=== PATIENT | male | born 2000 | race Caucasian/White ===

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

== ENCOUNTER 2021-01-03 18:55 | Emergency (ER) | payer MEDICAID ==
[~2021-01-03] VITALS: Ht 160 cm; Wt 59.1 kg
[2021-01-03 18:55] VITALS: TEMP 99.2
[2021-01-03 22:32] VITALS: BP 116/84; PULSE 90
== END 2021-01-03 22:32 | disposition short-term general hospital (02) ==
LOC: COL.ER 18:55
DX: S50.812A Abrasion of left forearm, initial encounter (principal); S50.811A Abrasion of right forearm, initial encounter; S80.212A Abrasion, left knee, initial encounter; S80.211A Abrasion, right knee, initial encounter; S30.810A Abrasion of lower back and pelvis, initial encounter; V29.9XXA Motorcycle rider (driver) (passenger) injured in unspecified traffic accident, initial encounter
CPT/HCPCS: J7030